=== PATIENT | female | born 1980 | race Two or more races ===

== ENCOUNTER 2022-01-22 12:01 | Emergency (ER) | payer MEDICAID ==
[~2022-01-22] VITALS: Ht 162.6 cm; Wt 130.0 kg
[2022-01-22] MEDS ORDERED: ACETAMINOPHEN 325MG TABLET PO ONE (13:45)
[2022-01-22 15:30] LABS: HEMATOCRIT. 38.5 % (36.0-48.0); MEAN CORPUSCULAR HEMOGLOBIN 29.2 pg (28.0-32.0); MEAN CORPUSCULAR VOLUME 86.5 fL (81.0-99.0); MEAN PLATELET VOLUME 8.6 fl (7.4-10.4); PLATELET 160 x1000/uL (130-400); RED BLOOD CELL COUNT 4.45 mill/uL (4.2-5.4); RED CELL DISTRIBUTION WIDTH 13.6 % (11.6-14.6)
[2022-01-22 15:38] LABS: CHLORIDE 106 mEq/L (98-107)
[2022-01-22] MEDS ORDERED: TOPUD PO (15:43)
[2022-01-22] MEDS ORDERED: ACETAMINOPHEN 325MG TABLET PO NR (16:00)
[2022-01-22 16:07] LABS: HCG SCREEN NEGATIVE
[2022-01-22 16:15] LABS: PROTHROMBIN TIME 10.9 sec (9.6-11.0)
[2022-01-22 16:36] LABS: CLARITY URINE CLOUDY (CLEAR); COLOR URINE YELLOW (YELLOW); KETONES URINE NEGATIVE (NEGATIVE); LEUKOCYTE ESTERASE URINE 2+ (NEGATIVE); NITRITE URINE POSITIVE (NEGATIVE); OCCULT BLOOD URINE 2+ (NEGATIVE); PROTEIN URINE 2+ (NEGATIVE); SPECIFIC GRAVITY URINE 1.014 (1.005-1.030); UROBILINOGEN URINE 0.2 E.U./dL (0.2-1.0)
[2022-01-22] MEDS ORDERED: CEPH500C2 MT (16:52)
[2022-01-22 17:07] VITALS: BP 116/76
[2022-01-22 20:45] LABS: PLATELET ESTIMATE NORMAL
== END 2022-01-22 17:09 | disposition home or self-care (01) ==
LOC: ER 12:15
DX: R10.9 Unspecified abdominal pain (principal); F17.290 Nicotine dependence, other tobacco product, uncomplicated
CPT/HCPCS: 36415; 74176; 80053; 81003; 81025; 84703; 85025; 87077; 87186; 99284